=== PATIENT | male | born 1975 | race Caucasian/White ===

== ENCOUNTER → 2016-11-13 | Outpatient (CLI) | payer OTHER ==
--- NOTE | ~2016-11-13 | US113 ---
[facility] A Service [facility] RADIOLOGY TEXT RESULTS PATIENT: JALEN BARAHONA LOCATION: SGUS : 73 UNIT #: [id number] AGE: [address]: Minh Glez MD SEX: M ORDER DR: [id number] [address] [address] [id number] O MR#: [id number] Acc #: [id number] NAME: JALEN BARAHONA : 1975 SEX: M STUDY DATE/TIME: 11/13/2016 13:45 UNIT: SGUS ROOM: STUDY DESCRIPTION: US Scrotal Duplex Complete Attending Physician: Minh Glez M.D. Referring Physician: Minh Glez M.D. Ordering Physician: Minh Glez M.D. Primary Care Physician: Minh Glez M.D. MEDICAL IMAGING REPORT This report is preliminary unless electronic signature is present. EXAM Scrotal ultrasound INDICATION Right-sided testicular pain since a vasectomy 11 years ago. PROCEDURE Alberto-scale and Doppler imaging scrotum and scrotal contents. COMPARISON None. FINDINGS Right testicle measures 3.1 x 4.9 x 2.9 cm. No mass. There is a 5 mm right epididymal cyst. Left testicle measures 2.8 x 5.0 x 2.3 cm. No mass. IMPRESSION Small right epididymal cyst. Otherwise negative. Dictated by... Stevan Guzman M.D. THIS IS AN ELECTRONICALLY VERIFIED REPORT Stevan Guzman M.D. at 11/16/2016 9:51 AM NEHEMIAH/hedy TD: 11/15/2016 12:08 JOB #: [id number] [facility] A Service [facility] RADIOLOGY TEXT RESULTS PATIENT: JALEN BARAHONA LOCATION: SG : 73 UNIT #: [id number] AGE: [address]: Minh Glez MD SEX: M ORDER DR: MEDICAL IMAGING REPORT
== END | disposition home or self-care (01) ==
LOC: SGUS 13:16
DX: N50.811 Right testicular pain (principal); N50.3 Cyst of epididymis
CPT/HCPCS: 76870